=== PATIENT | female | born 1960 | race Caucasian/White ===

== ENCOUNTER 2019-01-02 12:14 | Outpatient (CLI) | payer BC ==
--- NOTE | 2019-01-02 12:44 | MMO ---
Bilateral MAMMO Bilat Screen [facility]. CLINICAL HISTORY: Patient is 58 years old and is seen for screening. The patient has no family history of breast cancer. The patient has no personal history of cancer. VIEWS: The views performed were: bilateral craniocaudal with tomosynthesis and bilateral mediolateral oblique with tomosynthesis. FILMS COMPARED: The present examination has been compared to prior imaging studies performed at [facility] on 02/03/2007, 01/17/2009, 06/02/2012 and 11/11/2015. MAMMOGRAM FINDINGS: There are scattered fibroglandular densities. There are no suspicious masses, suspicious calcifications, or new areas of architectural distortion. IMPRESSION: THERE IS NO MAMMOGRAPHIC EVIDENCE OF MALIGNANCY. A ROUTINE FOLLOW-UP MAMMOGRAM IN 1 YEAR IS RECOMMENDED. THE RESULTS OF THIS EXAM WERE SENT TO THE PATIENT. ACR BI-RADS Category 1 - Negative MAMMOGRAPHY NOTE: 1. A negative mammogram report should not delay a biopsy if a dominant of clinically suspicious mass is present. 2. Approximately 10% to 15% of breast cancers are not detected by mammography. 3. Adenosis and dense breasts may obscure an underlying neoplasm. Reported by: ISAIAH GOFF MD Electonically Signed: [id number]
== END 2019-01-02 12:15 | disposition home or self-care (01) ==
LOC: BICMAMMO 12:14
PROVIDERS: ATTEND Obstetrics & Gynecology
DX: Z12.31 Encounter for screening mammogram for malignant neoplasm of breast (principal)
CPT/HCPCS: 77063; 77067

== ENCOUNTER 2020-03-03 12:33 | Outpatient (CLI) | payer BC ==
--- NOTE | 2020-03-03 13:43 | MMO ---
Bilateral MAMMO Bilat Screen [facility]. CLINICAL HISTORY: Patient is 59 years old and is seen for screening. The patient has no family history of breast cancer. The patient has no personal history of cancer. VIEWS: The views performed were: bilateral craniocaudal with tomosynthesis; bilateral mediolateral oblique with tomosynthesis; and right mediolateral oblique. FILMS COMPARED: The present examination has been compared to prior imaging studies performed at [facility] on 01/17/2009, 06/02/2012, 11/11/2015 and 01/02/2019. This study has been interpreted with the assistance of computer-aided detection. MAMMOGRAM FINDINGS: There are scattered fibroglandular densities. There are no suspicious masses, suspicious calcifications, or new areas of architectural distortion. IMPRESSION: THERE IS NO MAMMOGRAPHIC EVIDENCE OF MALIGNANCY. A ROUTINE FOLLOW-UP MAMMOGRAM IN 1 YEAR IS RECOMMENDED. THE RESULTS OF THIS EXAM WERE SENT TO THE PATIENT. ACR BI-RADS Category 1 - Negative MAMMOGRAPHY NOTE: 1. A negative mammogram report should not delay a biopsy if a dominant of clinically suspicious mass is present. 2. Approximately 10% to 15% of breast cancers are not detected by mammography. 3. Adenosis and dense breasts may obscure an underlying neoplasm. Reported by: AHSAN REED MD Electonically Signed: [id number]
== END 2020-03-03 12:34 | disposition home or self-care (01) ==
LOC: BICMAMMO 12:33
PROVIDERS: ATTEND Obstetrics & Gynecology
DX: Z12.31 Encounter for screening mammogram for malignant neoplasm of breast (principal)
CPT/HCPCS: 77063; 77067

== ENCOUNTER 2020-10-28 13:07 | Outpatient (CLI) | payer BC | END 2020-10-28 13:08 | disposition home or self-care (01) | LOC: BICULT 13:07 | PROVIDERS: ATTEND Otolaryngology Plastic Surgery within the Head & Neck | DX: E83.52 Hypercalcemia (principal); E07.89 Other specified disorders of thyroid | CPT/HCPCS: 76536 ==

== ENCOUNTER 2020-11-21 07:43 | Outpatient (CLI) | payer BC ==
[2020-11-21] MEDS ORDERED: Iopamidol 370 76% 100 ML VIAL ONE (11:00)
== END 2020-11-21 07:44 | disposition home or self-care (01) ==
LOC: NM 07:43 → EEVIPCON 07:43 → NM 07:44
PROVIDERS: ATTEND Otolaryngology Plastic Surgery within the Head & Neck
DX: E83.52 Hypercalcemia (principal); E07.9 Disorder of thyroid, unspecified
CPT/HCPCS: 70492; 78072; 82565; A9500

== ENCOUNTER 2021-03-12 11:41 | Outpatient (CLI) | payer BC ==
[2021-03-12 13:47] LABS: ALT (SGPT) 23 U/L (8-55); AST (SGOT) 24 U/L (5-34); Albumin 3.7 g/dL (3.4-4.8); Alkaline Phosphatase 112 U/L (40-110); Anion Gap 16 mmol/L (10-20); BUN (Urea Nitrogen) 14 mg/dL (9.8-20.1); Bilirubin, Direct 0.4 mg/dL (0.1-0.3); Bilirubin, Total 0.9 mg/dL (0.2-1.2); Calc. Creatinine Clearance 0 mL/min (70-130); Calcium 7.9 mg/dL (7.8-10.44); Carbon Dioxide 26 mmol/L (23-31); Chloride 101 mmol/L (98-107); Glucose 114 mg/dL (80-115); Potassium 3.5 mmol/L (3.5-5.1); Protein, Total 6.7 g/dL (5.8-8.1); Sodium 139 mmol/L (136-145)
[2021-03-12 14:10] LABS: #Basophils 0.1 10x3/uL (0.0-0.2); #Eosinphils 0.4 10x3/uL (0.0-0.5); #Neutrophils 8.2 10x3/uL (1.5-8.4); %Basophils 0.9 % (0.0-2.0); %Eosinophils 3.4 % (0.0-6.0); %Lymphocytes 14.7 % (18.0-47.0); %Monocytes 8.4 % (0.0-10.0); %Neutrophils 71.2 % (40.0-75.0); Hemoglobin 12.7 g/dL (12.0-15.5); Mean Corpuscular HGB CONC 33.4 g/dL (32.0-36.0); Mean Corpuscular Volume 89.8 fl (81.6-98.3); Mean Platelet Volume 11.1 fl (7.4-10.4); Platelet Count 316 10x3/uL (150-450); Red Blood Cell (RBC) Count 4.23 10x6/uL (3.90-5.03); White Blood Cell (WBC) Count 11.5 10x3/uL (3.5-10.5)
[2021-03-12 14:20] LABS: SARS-CoV-2 NAA Rapid Test Not Detected (NotDetected)
== END 2021-03-12 11:42 | disposition home or self-care (01) ==
LOC: LABBT 11:41
PROVIDERS: ATTEND Surgery
DX: Z01.818 Encounter for other preprocedural examination (principal); Z20.822 Contact with and (suspected) exposure to COVID-19
CPT/HCPCS: 80053; 80076; 85025; 93005; 93010; U0002

== ENCOUNTER 2021-03-13 09:08 | Inpatient (IN) | payer BC ==
[2021-03-13] MEDS ORDERED: cefOXitin Sodium/Dextrose 2 GM/50 ML BAG ONE ×2 (10:12→14:34)
[2021-03-13] MEDS ORDERED: Scopolamine 1.5 mg/72 hour Patch ONE (10:28)
[2021-03-13] MEDS ORDERED: Bupivacaine 0.25% HCL 30 ML VIAL ONE (10:32)
[2021-03-13] MEDS ORDERED: Lidocaine 1% w/Epinephrine 1:100K 20 ML VIAL ONE (10:32)
[2021-03-13] MEDS ORDERED: Fentanyl 100 MCG/2 ML VIAL ONE ×3 (10:36→15:27)
[2021-03-13] MEDS ORDERED: PROPOFOL 60 ML ONE (10:36)
[2021-03-13] MEDS ORDERED: Acetaminophen 500 MG TAB ONE (10:40)
[2021-03-13] MEDS ORDERED: ePHEDrine 50 MG/ML VIAL ONE (10:55)
[2021-03-13] MEDS ORDERED: Rocuronium Bromide 10 MG/ML (10ML VIAL) ONE (10:55)
[2021-03-13] MEDS ORDERED: Dexamethasone 20 MG/5 ML VIAL ONE (10:55)
[2021-03-13] MEDS ORDERED: PROPOFOL 200 MG/20 ML VIAL ONE (10:55)
[2021-03-13] MEDS ORDERED: Glycopyrrolate 0.2 MG/ML 5 ML SYRINGE ONE (10:55)
[2021-03-13] MEDS ORDERED: Ondansetron PF 4 MG/2 ML Vial ONE ×3 (10:55→14:01)
[2021-03-13] MEDS ORDERED: Lidocaine 1% PF 5 ML VIAL ONE (10:55)
[2021-03-13] MEDS ORDERED: Calcium Gluc 4.6 MEQ/10 ML (100 MG/ML) SLOW IVP SCH (11:15)
[2021-03-13 11:50] LABS: Anion Gap 15 mmol/L (10-20); BUN (Urea Nitrogen) 13 mg/dL (9.8-20.1); Calc. Creatinine Clearance 98 mL/min (70-130); Calcium 6.8 mg/dL (7.8-10.44); Carbon Dioxide 24 mmol/L (23-31); Chloride 101 mmol/L (98-107); Glucose 120 mg/dL (80-115); Potassium 3.3 mmol/L (3.5-5.1); Sodium 137 mmol/L (136-145)
[2021-03-13] MEDS ORDERED: SUGAMMADEX SODIUM 200 MG/2 ML VIAL ONE (12:13)
[2021-03-13] MEDS ORDERED: Iothalamate Meglumine 60% 50 ML VIAL FS ONE (12:16)
[2021-03-13] MEDS ORDERED: Calcium Carbonate 500 MG ChewTAB PO PRN (14:34)
[2021-03-13] MEDS ORDERED: Ondansetron PF 4 MG/2 ML Vial IVP PRN ×2 (14:34→15:50)
[2021-03-13] MEDS ORDERED: HumaLOG 300 UNITS/3 ML VIAL SC PRN (14:34)
[2021-03-13] MEDS ORDERED: Promethazine HCl 25 MG/ML VIAL IM PRN ×2 (14:34→15:50)
[2021-03-13] MEDS ORDERED: Dextrose 5% in Water 1,000 ML IV PRN ×2 (14:34→21:33)
[2021-03-13] MEDS ORDERED: hydrALAZINE 20 MG/ML VIAL SLOW IVP PRN (14:34)
[2021-03-13] MEDS ORDERED: Mag-Al 1200 mg/1200 mg/30 ML UDCUP PO PRN (14:34)
[2021-03-13] MEDS ORDERED: Morphine 4 MG/ML VIAL SLOW IVP PRN ×2 (14:34→15:26)
[2021-03-13] MEDS ORDERED: Dextrose 50% Abboject 50 ML SYRINGE SLOW IVP PRN ×2 (14:34→21:33)
[2021-03-13 15:24] LABS: Analyzer IN Cardio OR; Base Excess (BEa) -2.8 mEq/L (-2.0 to +3.0); CO2 Tension 38.4 mmHg (35.0-45.0); Calcium, Ionized (arterial) 1.02 mmol/L (1.12-1.30); Carboxyhemoglobin (COHb) 0.8 gm% (0.0-3.0); Hemoglobin (Hb) 12.6 g/dL (12.0-16.0); O2 Tension (PaO2), arterial 82.2 mmHg (> 80.0); Potassium - ABG Lab 2.97 mmol/L (3.70-5.30); pH, Arterial 7.38 (7.35-7.45)
[2021-03-13 15:25] LABS: Puncture Site LRA
[2021-03-13] MEDS ORDERED: Morphine 4 MG/ML VIAL ONE (15:35)
[2021-03-13] MEDS ORDERED: HYDROmorphone 2 MG/ML VIAL ONE (15:47)
[2021-03-13] MEDS ORDERED: Zolpidem Tartrate 5 MG TAB PO PRN (15:50)
[2021-03-13] MEDS ORDERED: diphenhydrAMINE 25 MG CAP PO PRN (15:50)
[2021-03-13] MEDS ORDERED: diphenhydrAMINE 50 MG/ML VIAL IM PRN (15:50)
[2021-03-13] MEDS ORDERED: diphenhydrAMINE 50 MG/ML VIAL IVP PRN (15:50)
[2021-03-13] MEDS ORDERED: Naloxone HCl 0.4 mg/ml Vial IV PRN (15:50)
[2021-03-13] MEDS: Sodium Chloride 0.9% 1,000 ML IV SCH (16:00)
[2021-03-13] MEDS ORDERED: Potassium Chloride 20 MEQ in Sodium Chloride 0.9% 250 ML 250 ML IVPB SCH (16:00)
[2021-03-13] MEDS ORDERED: Piperacillin/Tazobactam 3.375 GM in Sodium Chloride 0.9% 100 ML IVPB SCH ×5 (16:00→22:00)
[2021-03-13] MEDS ORDERED: Communication Order-Pharmacy FS SCH (16:00)
[2021-03-13] MEDS ORDERED: Calcium Gluconate 4.6 MEQ in Sodium Chloride 0.9% 100 ML IVPB SCH (17:00)
[2021-03-13] MEDS: Calcium Carbonate 500 MG ChewTAB PO SCH ×2 (20:02→21:03)
[2021-03-13] MEDS: Ketorolac Tromethamine 30 MG/ML VIAL IVP SCH (21:03)
[2021-03-13 21:04] VITALS: BMI 46.4
[2021-03-13] MEDS: Famotidine 20 MG TAB PO SCH (21:04)
[2021-03-13] MEDS: Famotidine/PF 20 mg/2ml Vial SLOW IVP SCH (21:04)
[2021-03-13] MEDS ORDERED: Electrolyte Replacement Protocol 1 EACH FS SCH (21:45)
[2021-03-13 23:21] LABS: Magnesium 1.6 mg/dL (1.6-2.6); Potassium 3.7 mmol/L (3.5-5.1)
[2021-03-14] MEDS: Calcium Carbonate 500 MG ChewTAB PO SCH ×6 (00:49→20:41)
[2021-03-14] MEDS: Sodium Chloride 0.9% 1,000 ML IV SCH ×3 (00:50→20:41)
[2021-03-14] MEDS: Ketorolac Tromethamine 30 MG/ML VIAL IVP SCH ×4 (00:51→18:35)
[2021-03-14] MEDS: Piperacillin/Tazobactam 3.375 GM in Sodium Chloride 0.9% 100 ML IVPB SCH ×3 (00:51→16:42)
[2021-03-14 03:57] LABS: #Eosinphils 0.1 thou/uL (0.0-0.7); #Lymphocytes 1.5 thou/uL (1.20-3.40); #Monocytes 1.1 thou/uL (0.11-0.59); #Neutrophils 12.7 thou/uL (1.40-6.50); %Eosinophils 0.4 % (0.0-10.0); %Lymphocytes 9.5 % (21.0-51.0); %Monocytes 7.1 % (0.0-10.0); %Neutrophils 82.9 % (42.0-75.0); Hemoglobin 11.3 g/dL (12.0-16.0); Mean Corpuscular HGB CONC 33.7 g/dL (32.0-36.0); Mean Corpuscular Hemoglobin 31.2 pg (27.0-31.0); Mean Corpuscular Volume 92.6 fL (78.0-98.0); Mean Platelet Volume 8.5 fL (7.4-10.4); Platelet Count 282 thou/uL (130-400); RBC Distribution Width 12.8 % (11.5-14.5); Red Blood Cell (RBC) Count 3.62 mill/uL (4.20-5.40); White Blood Cell (WBC) Count 15.3 thou/uL (4.8-10.8)
[2021-03-14 04:28] LABS: ALT (SGPT) 27 U/L (8-55); AST (SGOT) 56 U/L (5-34); Albumin 2.8 g/dL (3.4-4.8); Alkaline Phosphatase 74 U/L (40-110); Anion Gap 16 mmol/L (10-20); BUN (Urea Nitrogen) 12 mg/dL (9.8-20.1); Bilirubin, Total 0.4 mg/dL (0.2-1.2); Calc. Creatinine Clearance 117 mL/min (70-130); Calcium 6.7 mg/dL (7.8-10.44); Carbon Dioxide 20 mmol/L (23-31); Chloride 105 mmol/L (98-107); Globulin 2.5 g/dL (2.4-3.5); Glucose 118 mg/dL (80-115); Lipase 11 U/L (8-78); Potassium 3.7 mmol/L (3.5-5.1); Protein, Total 5.3 g/dL (5.8-8.1); Sodium 137 mmol/L (136-145)
[2021-03-14] MEDS ORDERED: Non-Formulary Item 1 EACH (Sertraline Hcl [Sertraline Hcl] 50 MG Tablet) PO SCH (05:00)
[2021-03-14] MEDS: Levothyroxine Sodium 50 MCG TAB PO SCH (05:41)
[2021-03-14] MEDS ORDERED: Magnesium 2 GM/50 ML 2 GM in Premix Bag 1 BAG IVPB SCH (07:00)
[2021-03-14] MEDS: Famotidine 20 MG TAB PO SCH ×2 (10:10→20:41)
[2021-03-14] MEDS: Famotidine/PF 20 mg/2ml Vial SLOW IVP SCH ×2 (10:11→21:01)
[2021-03-14] MEDS ORDERED: HYDROcodone/Acetaminophen 10/325 mg Tablet PO PRN ×2 (10:25)
[2021-03-14] MEDS: Enoxaparin Sodium 40 MG/0.4 ML SYRINGE SC SCH (12:33)
[2021-03-14] MEDS: Calcium Carbonate 600 MG + Vit D TAB PO SCH ×3 (12:34→20:42)
[2021-03-14] MEDS: fentaNYL Citrate/PF 2,000 MCG in Sodium Chloride 0.9% 60 ML IV PRN (21:26)
[2021-03-15] MEDS: Piperacillin/Tazobactam 3.375 GM in Sodium Chloride 0.9% 100 ML IVPB SCH ×3 (00:15→16:34)
[2021-03-15] MEDS: Calcium Carbonate 500 MG ChewTAB PO SCH ×7 (00:15→20:49)
[2021-03-15] MEDS: Ketorolac Tromethamine 30 MG/ML VIAL IVP SCH ×4 (00:16→17:57)
[2021-03-15] MEDS ORDERED: Polyethylene Glycol 3350 17 GM Packet PO PRN (03:04)
[2021-03-15] MEDS: Sodium Chloride 0.9% 1,000 ML IV SCH ×3 (03:56→20:49)
[2021-03-15] MEDS: Levothyroxine Sodium 50 MCG TAB PO SCH (06:10)
[2021-03-15] MEDS: Famotidine 20 MG TAB PO SCH ×2 (08:47→20:49)
[2021-03-15] MEDS: Calcium Carbonate 600 MG + Vit D TAB PO SCH ×4 (08:47→20:49)
[2021-03-15] MEDS: Famotidine/PF 20 mg/2ml Vial SLOW IVP SCH ×2 (08:59→21:03)
[2021-03-15] MEDS: Enoxaparin Sodium 40 MG/0.4 ML SYRINGE SC SCH (09:05)
[2021-03-15] MEDS ORDERED: HYDROcodone/Acetaminophen 10/325 mg Tablet PO PRN ×2 (14:02)
[2021-03-16] MEDS: Ketorolac Tromethamine 30 MG/ML VIAL IVP SCH ×3 (00:45→13:13)
[2021-03-16] MEDS: Calcium Carbonate 500 MG ChewTAB PO SCH ×5 (00:45→15:09)
[2021-03-16] MEDS: Piperacillin/Tazobactam 3.375 GM in Sodium Chloride 0.9% 100 ML IVPB SCH ×2 (00:45→08:25)
[2021-03-16] MEDS: Sodium Chloride 0.9% 1,000 ML IV SCH (01:15)
[2021-03-16] MEDS: fentaNYL Citrate/PF 2,000 MCG in Sodium Chloride 0.9% 60 ML IV PRN (03:51)
[2021-03-16 04:22] LABS: #Basophils 0.1 thou/uL (0.0-0.2); #Eosinphils 0.5 thou/uL (0.0-0.7); #Lymphocytes 2.4 thou/uL (1.20-3.40); #Neutrophils 5.5 thou/uL (1.40-6.50); %Basophils 0.6 % (0.0-1.0); %Eosinophils 5.3 % (0.0-10.0); %Lymphocytes 25.3 % (21.0-51.0); %Monocytes 10.7 % (0.0-10.0); %Neutrophils 58.1 % (42.0-75.0); Hemoglobin 9.9 g/dL (12.0-16.0); Mean Corpuscular HGB CONC 33.9 g/dL (32.0-36.0); Mean Corpuscular Hemoglobin 31.7 pg (27.0-31.0); Mean Corpuscular Volume 93.5 fL (78.0-98.0); Platelet Count 270 thou/uL (130-400); RBC Distribution Width 12.5 % (11.5-14.5); Red Blood Cell (RBC) Count 3.13 mill/uL (4.20-5.40); White Blood Cell (WBC) Count 9.5 thou/uL (4.8-10.8)
[2021-03-16 04:43] LABS: ALT (SGPT) 17 U/L (8-55); AST (SGOT) 18 U/L (5-34); Albumin 2.5 g/dL (3.4-4.8); Alkaline Phosphatase 74 U/L (40-110); Anion Gap 9 mmol/L (10-20); BUN (Urea Nitrogen) 6 mg/dL (9.8-20.1); Bilirubin, Total 0.3 mg/dL (0.2-1.2); Calc. Creatinine Clearance 137 mL/min (70-130); Calcium 7.1 mg/dL (7.8-10.44); Carbon Dioxide 27 mmol/L (23-31); Chloride 107 mmol/L (98-107); Globulin 2.4 g/dL (2.4-3.5); Glucose 110 mg/dL (80-115); Potassium 3.6 mmol/L (3.5-5.1); Protein, Total 4.9 g/dL (5.8-8.1); Sodium 139 mmol/L (136-145)
[2021-03-16] MEDS: Levothyroxine Sodium 50 MCG TAB PO SCH (06:01)
[2021-03-16] MEDS: Calcium Carbonate 600 MG + Vit D TAB PO SCH ×2 (08:26→13:13)
[2021-03-16] MEDS: Famotidine 20 MG TAB PO SCH (08:26)
[2021-03-16] MEDS: Enoxaparin Sodium 40 MG/0.4 ML SYRINGE SC SCH (08:27)
[2021-03-16] MEDS: Famotidine/PF 20 mg/2ml Vial SLOW IVP SCH (08:27)
[2021-03-16] MEDS ORDERED: FLU VACC QS2021-22(6MOS UP)/PF 60 MCG/0.5 ML SYRINGE IM ONE (09:00)
[2021-03-16] MEDS ORDERED: DC PCA Order Set 1 EACH FS SCH (10:50)
[2021-03-16 11:37] VITALS: TEMP 96.8
[2021-03-16] MEDS ORDERED: HYDROcodone/Acetaminophen 10/325 mg Tablet PO PRN ×2 (11:37→11:38)
[2021-03-16 16:27] VITALS: BP 150/69
== END 2021-03-16 17:45 | disposition home or self-care (01) | DRG 854 ==
LOC: SDC 09:08 → ONC 14:34
PROVIDERS: ADMIT Surgery; ATTEND Internal Medicine
PROC: 0FT40ZZ Resection of Gallbladder, Open Approach (ICD-10-PCS; principal; 2021-03-13)
PROC: 0FJ44ZZ Inspection of Gallbladder, Percutaneous Endoscopic Approach (ICD-10-PCS; 2021-03-13)
PROC: 0FB00ZX Excision of Liver, Open Approach, Diagnostic (ICD-10-PCS; 2021-03-13)
PROC: BF131ZZ Fluoroscopy of Gallbladder and Bile Ducts using Low Osmolar Contrast (ICD-10-PCS; 2021-03-13)
DX: A41.9 Sepsis, unspecified organism (principal); K81.0 Acute cholecystitis; Z68.42 Body mass index [BMI] 45.0-49.9, adult; F32.A Depression, unspecified; E66.01 Morbid (severe) obesity due to excess calories; E11.9 Type 2 diabetes mellitus without complications; E03.9 Hypothyroidism, unspecified; K82.A1 Gangrene of gallbladder in cholecystitis; K74.60 Unspecified cirrhosis of liver; E20.9 Hypoparathyroidism, unspecified; K75.81 Nonalcoholic steatohepatitis (NASH); F39 Unspecified mood [affective] disorder; E87.6 Hypokalemia; Z20.822 Contact with and (suspected) exposure to COVID-19; I10 Essential (primary) hypertension; Z79.84 Long term (current) use of oral hypoglycemic drugs; Z79.899 Other long term (current) drug therapy; Z88.2 Allergy status to sulfonamides; Z90.710 Acquired absence of both cervix and uterus; Z90.89 Acquired absence of other organs; Z90.49 Acquired absence of other specified parts of digestive tract
CPT/HCPCS: 36415; 36416; 36600; 47532; 80048; 80053; 80076; 82310; 82805; 83690; 83735; 84443; 85025; 87070; 87205; 88304; 88307; 93005; J0610; J0694; J1100; J1170; J1650; J1885; J2270; J2405; J2543; J2704; J3010; J3475; J3480; J3490; J7050; Q9961-U8; S0020; S0028; U0002

== ENCOUNTER 2021-05-04 11:41 | Outpatient (CLI) | payer BC | END 2021-05-04 11:42 | disposition home or self-care (01) | LOC: BICMAMMO 11:41 | PROVIDERS: ATTEND Obstetrics & Gynecology | DX: Z12.31 Encounter for screening mammogram for malignant neoplasm of breast (principal) | CPT/HCPCS: 77063; 77067 ==

== ENCOUNTER 2021-05-15 12:03 | Outpatient (CLI) | payer BC ==
[2021-05-15 14:23] LABS: #Basophils 0.1 10x3/uL (0.0-0.2); #Eosinphils 0.2 10x3/uL (0.0-0.5); #Monocytes 0.7 10x3/uL (0.0-1.1); #Neutrophils 7.8 10x3/uL (1.5-8.4); %Basophils 0.6 % (0.0-2.0); %Eosinophils 1.3 % (0.0-6.0); %Lymphocytes 24.6 % (18.0-47.0); %Monocytes 5.8 % (0.0-10.0); %Neutrophils 67.2 % (40.0-75.0); Hemoglobin 12.3 g/dL (12.0-15.5); Mean Corpuscular HGB CONC 31.8 g/dL (32.0-36.0); Mean Corpuscular Hemoglobin 28.6 pg (27.0-33.0); Mean Platelet Volume 11.3 fl (7.4-10.4); Platelet Count 277 10x3/uL (150-450); RBC Distribution Width 13.8 % (11.5-14.5); White Blood Cell (WBC) Count 11.6 10x3/uL (3.5-10.5)
[2021-05-15 14:56] LABS: ALT (SGPT) 26 U/L (8-55); AST (SGOT) 24 U/L (5-34); Albumin 3.9 g/dL (3.4-4.8); Alkaline Phosphatase 98 U/L (40-110); Anion Gap 12 mmol/L (10-20); BUN (Urea Nitrogen) 12 mg/dL (9.8-20.1); Bilirubin, Total 0.4 mg/dL (0.2-1.2); Calc. Creatinine Clearance 0 mL/min (70-130); Calcium 8.8 mg/dL (7.8-10.44); Carbon Dioxide 30 mmol/L (23-31); Chloride 100 mmol/L (98-107); Globulin 3.3 g/dL (2.4-3.5); Glucose 86 mg/dL (80-115); Potassium 3.2 mmol/L (3.5-5.1); Protein, Total 7.2 g/dL (5.8-8.1); Sodium 139 mmol/L (136-145)
[2021-05-16 14:13] LABS: SARS-CoV-2 PCR by NAA Not Detected (NotDetected)
== END 2021-05-15 12:04 | disposition home or self-care (01) ==
LOC: LABBT 12:03
PROVIDERS: ATTEND Surgery
DX: Z01.818 Encounter for other preprocedural examination (principal); Z20.822 Contact with and (suspected) exposure to COVID-19
CPT/HCPCS: 80053; 85025; 93005; 93010; U0003; U0005

== ENCOUNTER 2021-05-20 08:35 | Day surgery (SDC) | payer BC ==
[2021-05-18 15:27] VITALS: BMI 42.5
[2021-05-20] MEDS ORDERED: ceFAZolin 2 GM/DEX 5% 100 ML BAG ONE (09:07)
[2021-05-20] MEDS ORDERED: Bupivacaine 0.25% 10 ML VIAL ONE (09:50)
[2021-05-20] MEDS ORDERED: Fentanyl 100 MCG/2 ML VIAL ONE ×2 (10:33→11:46)
[2021-05-20] MEDS ORDERED: Glycopyrrolate 0.2 MG/ML 5 ML SYRINGE ONE (10:49)
[2021-05-20] MEDS ORDERED: Lidocaine 1% PF 5 ML VIAL ONE (10:49)
[2021-05-20] MEDS ORDERED: PROPOFOL 200 MG/20 ML VIAL ONE (10:49)
[2021-05-20] MEDS ORDERED: Dexamethasone 20 MG/5 ML VIAL ONE (10:49)
[2021-05-20] MEDS ORDERED: Rocuronium Bromide 10 MG/ML (10ML VIAL) ONE (10:49)
[2021-05-20] MEDS ORDERED: ePHEDrine 50 MG/ML VIAL ONE (10:49)
[2021-05-20] MEDS ORDERED: Ondansetron PF 4 MG/2 ML Vial ONE (10:49)
[2021-05-20] MEDS ORDERED: SUGAMMADEX SODIUM 200 MG/2 ML VIAL ONE (11:29)
[2021-05-20] MEDS ORDERED: HYDROcodone/Acetaminophen 5/325 mg Tablet ONE (12:48)
== END 2021-05-20 14:20 | disposition home or self-care (01) ==
LOC: SDC 08:35
PROVIDERS: ATTEND Surgery
PROC: 0WUF0JZ Supplement Abdominal Wall with Synthetic Substitute, Open Approach (ICD-10-PCS; principal; 2021-05-20)
DX: K42.9 Umbilical hernia without obstruction or gangrene (principal); Z79.84 Long term (current) use of oral hypoglycemic drugs; Z79.899 Other long term (current) drug therapy; Z88.2 Allergy status to sulfonamides
CPT/HCPCS: C1781; J1100; J2405; J2704; J3010; J3490; S0020

== ENCOUNTER 2022-07-27 13:30 | Outpatient (CLI) | payer BC ==
[2022-07-27 14:09] LABS: #Basophils 0.1 10x3/uL (0.0-0.2); #Eosinphils 0.3 10x3/uL (0.0-0.5); #Monocytes 0.5 10x3/uL (0.0-1.1); #Neutrophils 8.2 10x3/uL (1.5-8.4); %Basophils 0.8 % (0.0-2.0); %Eosinophils 2.4 % (0.0-6.0); %Lymphocytes 20.3 % (18.0-47.0); %Monocytes 4.5 % (0.0-10.0); %Neutrophils 71.6 % (40.0-75.0); Hemoglobin 13.6 g/dL (12.0-15.5); Mean Corpuscular HGB CONC 32.8 g/dL (32.0-36.0); Mean Corpuscular Hemoglobin 28.3 pg (27.0-33.0); Mean Corpuscular Volume 86.3 fl (81.6-98.3); Mean Platelet Volume 11.2 fl (7.4-10.4); Platelet Count 282 10x3/uL (150-450); RBC Distribution Width 14.3 % (11.5-14.5); Red Blood Cell (RBC) Count 4.81 10x6/uL (3.90-5.03); White Blood Cell (WBC) Count 11.5 10x3/uL (3.5-10.5)
[2022-07-27 14:29] LABS: ALT (SGPT) 37 U/L (8-55); AST (SGOT) 34 U/L (5-34); Albumin 4.3 g/dL (3.4-4.8); Alkaline Phosphatase 96 U/L (40-110); Anion Gap 17 mmol/L (10-20); BUN (Urea Nitrogen) 16 mg/dL (9.8-20.1); Bilirubin, Total 0.6 mg/dL (0.2-1.2); Calc. Creatinine Clearance 0 mL/min (70-130); Calcium 9.1 mg/dL (7.8-10.44); Carbon Dioxide 25 mmol/L (23-31); Chloride 98 mmol/L (98-107); Estimated GFR 70; Globulin 3.5 g/dL (2.4-3.5); Glucose 123 mg/dL (80-115); Potassium 3.4 mmol/L (3.5-5.1); Protein, Total 7.8 g/dL (5.8-8.1); Sodium 137 mmol/L (136-145)
== END 2022-07-27 13:31 | disposition home or self-care (01) ==
LOC: LABBT 13:30
PROVIDERS: ATTEND Surgery
DX: Z01.818 Encounter for other preprocedural examination (principal); K43.2 Incisional hernia without obstruction or gangrene
CPT/HCPCS: 80053; 85025; 93005; 93010

== ENCOUNTER 2022-07-30 07:00 | Day surgery (SDC) | payer BC ==
[2022-07-28 10:59] VITALS: BMI 46.8
[2022-07-30] MEDS ORDERED: Famotidine/PF 20 mg/2ml Vial ONE (08:59)
[2022-07-30] MEDS ORDERED: Scopolamine 1.5 mg/72 hour Patch ONE (08:59)
[2022-07-30] MEDS ORDERED: Bupivacaine/Epinephrine 0.25% 30 ML VIAL ONE (10:06)
[2022-07-30] MEDS ORDERED: SUGAMMADEX SODIUM 200 MG/2 ML VIAL ONE (10:11)
[2022-07-30] MEDS ORDERED: fentaNYL PF 100 MCG/2 ML SYRINGE ONE (10:11)
[2022-07-30] MEDS ORDERED: Sodium Chloride 0.9% 100 ML ONE (10:21)
[2022-07-30] MEDS ORDERED: CEFAZOLIN 2 GM VIAL ONE (10:21)
[2022-07-30] MEDS ORDERED: Dexamethasone 20 MG/5 ML VIAL ONE (10:29)
[2022-07-30] MEDS ORDERED: PROPOFOL 200 MG/20 ML VIAL ONE (10:29)
[2022-07-30] MEDS ORDERED: Ondansetron PF 4 MG/2 ML Vial ONE (10:29)
[2022-07-30] MEDS ORDERED: ePHEDrine 50 MG/ML VIAL ONE (10:29)
[2022-07-30] MEDS ORDERED: Ketorolac Tromethamine 30 MG/ML VIAL ONE (10:29)
[2022-07-30] MEDS ORDERED: Lidocaine 1% PF 5 ML VIAL ONE (10:29)
[2022-07-30] MEDS ORDERED: Rocuronium Bromide 10 MG/ML (10ML VIAL) ONE (10:29)
[2022-07-30] MEDS ORDERED: Fentanyl 100 MCG/2 ML VIAL ONE (12:06)
== END 2022-07-30 13:52 | disposition home or self-care (01) ==
LOC: SDC 07:00
PROVIDERS: ATTEND Surgery
PROC: 0WUF0JZ Supplement Abdominal Wall with Synthetic Substitute, Open Approach (ICD-10-PCS; principal; 2022-07-30)
DX: K43.0 Incisional hernia with obstruction, without gangrene (principal); K66.0 Peritoneal adhesions (postprocedural) (postinfection); E89.2 Postprocedural hypoparathyroidism; E11.9 Type 2 diabetes mellitus without complications; Z79.84 Long term (current) use of oral hypoglycemic drugs; Z79.85 Long-term (current) use of injectable non-insulin antidiabetic drugs; Z79.890 Hormone replacement therapy; Z79.899 Other long term (current) drug therapy; Z88.2 Allergy status to sulfonamides
CPT/HCPCS: C1781; J1100; J1885; J2405; J2704; J3010; J3490; S0028